=== PATIENT | male | born 1980 | race Caucasian/White ===

== ENCOUNTER 2016-03-12 02:01 | Emergency (ER) | payer OTHER ==
[2016-03-12 02:16] VITALS: BP 137/79; PULSE 78; RESP 16; TEMP 98.4
--- NOTE | 2016-03-12 02:24 | ED ---
Fall HPI - General Chief Complaint: Fall Stated Complaint: Arm injury-[facility] Time Seen by Provider: 03/12/16 02:17 Source: patient, RN notes reviewed Mode of arrival: ambulatory Limitations: no limitations - History of Present Illness Initial Comments: 36-year-old male presents emergency Department chief complaint left elbow injury. Patient states that he works for [employer]. Patient states that he fell out of semi-onto his left elbow. Patient denies any head injury, LOC. Patient states she does have some mild left elbow, forearm tenderness but states is very minimal. Patient states does have full range of motion. He states he was working on a computer and states he felt some numbness to his fifth digit on his left side. Patient denies any weakness. Patient is right- hand dominant. Patient states symptoms, and go. Patient denies any head, neck or back pain. Patient states that when he fell he did bite down firmly and states that he felt some pain in his left lower dental region. Patient does admit to having some prior fillings but states that he did not have any pieces fall but states it did feel like it cracked. - Related Data Home Medications Medication Instructions Recorded Confirmed No Known Home Medications [No 03/12/16 03/12/16 Known Home Medications] Allergies Allergy/AdvReac Type Severity Reaction Status Date / Time No Known Allergies Allergy Verified 03/12/16 02:16 Review of Systems ROS Statement: Those systems with pertinent positive or pertinent negative responses have been documented in the HPI. ROS Other: All systems not noted in ROS Statement are negative. Past Medical History Past Medical History: No Reported History History of Any Multi-Drug Resistant Organisms: None Reported Past Surgical History: No Surgical Hx Reported Past Psychological History: No Psychological Hx Reported Smoking Status: Current every day smoker Past Alcohol Use History: Occasional Past Drug Use History: None Reported General Exam Limitations: no limitations General appearance: alert, in no apparent distress Head exam: Present: atraumatic, normocephalic, normal inspection Eye exam: Present: normal appearance, PERRL, EOMI. Absent: scleral icterus, conjunctival injection, periorbital swelling ENT exam: Present: mucous membranes moist. Absent: normal oropharynx (Fillings noted to dental region left lower, there is no apparent dental fracture or missing pieces noted) Neck exam: Present: normal inspection, full ROM. Absent: tenderness, meningismus, lymphadenopathy Respiratory exam: Present: normal lung sounds bilaterally. Absent: respiratory distress, wheezes, rales, rhonchi, stridor Cardiovascular Exam: Present: regular rate, normal rhythm, normal heart sounds. Absent: systolic murmur, diastolic murmur, rubs, gallop, clicks Extremities exam: Present: other (Left elbow there is minimal tenderness just distal of the elbow, neurovascular intact there is no swelling no ecchymosis patient has equal strength 5/5 radial pulses equal bilaterally) Back exam: Present: full ROM. Absent: tenderness, muscle spasm, paraspinal tenderness, vertebral tenderness Neurological exam: Present: alert, oriented X3, CN II-XII intact Skin exam: Present: warm, dry, intact, normal color. Absent: rash Course Vital Signs 03/12/16 02:12 Temperature 98.4 F Pulse Rate 78 Respiratory 16 Rate Blood Pressure 137/79 O2 Sat by Pulse 96 Oximetry Medical Decision Making - Medical Decision Making 36-year-old male present emergency department for fall. Patient has a left elbow contusion. Patient does report left dental pain in the lower aspect there is no obvious or apparent injury at this time. Return parameters were discussed. Patient will follow-up with workman's comp for any further care. Disposition Clinical Impression: Fall, Left elbow contusion, Injury of left elbow, Dental injury Disposition: HOME SELF-CARE Condition: Stable Instructions: Contusion in Adults (ED) Additional Instructions: Please return to the Emergency Department if symptoms worsen or any other concerns. Referrals: Santiago Hoffmann MD [Primary Care Provider] - 1-2 days Time of Disposition: 02:27
--- NOTE | 2016-03-12 02:58 | XR ---
EXAMINATION TYPE: XR elbow complete LT DATE OF EXAM: 03/12/2016 2:26 AM CLINICAL HISTORY: pain status post fall. TECHNIQUE: Frontal, lateral and oblique images of the left elbow are obtained. COMPARISON: None. FINDINGS: There is no acute fracture/dislocation evident of the elbow. No abnormal fat pad signs ar e seen. The overlying soft tissue appears unremarkable. Small posterior olecranon spur is noted. IMPRESSION: There is no acute fracture or dislocation of the elbow. ICD 10 NO FRACTURE, INITIAL EVALUATION
== END 2016-03-12 02:39 | disposition home or self-care (01) ==
LOC: EC 02:01
DX: S50.02XA Contusion of left elbow, initial encounter (principal); S09.93XA Unspecified injury of face, initial encounter; W17.89XA Other fall from one level to another, initial encounter; Y99.0 Civilian activity done for income or pay; F17.200 Nicotine dependence, unspecified, uncomplicated
CPT/HCPCS: 99284